=== PATIENT | male | born 1995 | race Hispanic/Latino ===

== ENCOUNTER 2018-03-03 16:47 | Emergency (ER) | payer BC ==
--- NOTE | 2018-03-03 17:27 | RAD ---
RIGHT HAND 3 VIEWS: Date: 03/03/18 HISTORY: 22-year-old male with history of cat bite 2 days ago with swelling. FINDINGS: Dorsal soft tissue swelling of the hand is noted. No fracture or dislocation, or other significant ac suhail osseous abnormality. No evidence for foreign body. IMPRESSION: Dorsal soft tissue swelling without fracture or dislocation. POS: [facility]
[2018-03-03] MEDS ORDERED: Ampicillin/Sulbactam 3 GM in Sodium Chloride 0.9% 100 ML IVPB ONE (17:30)
== END 2018-03-03 18:12 | disposition home or self-care (01) ==
LOC: ERS 16:47
DX: S61.451A Open bite of right hand, initial encounter (principal); W55.01XA Bitten by cat, initial encounter
CPT/HCPCS: 96365; J0295; J7050

== ENCOUNTER 2018-03-05 13:43 | Emergency (ER) | payer BC | END 2018-03-05 14:03 | disposition home or self-care (01) | LOC: ERS 13:43 | DX: M25.441 Effusion, right hand (principal) | CPT/HCPCS: 99283 ==